=== PATIENT | male | born 1990 | race Two or more races ===

== ENCOUNTER 2021-09-05 03:35 | Emergency (ER) | payer BC ==
[~2021-09-05] VITALS: Ht 172.7 cm; Wt 76.4 kg
[2021-09-05 03:45] VITALS: BP 162/88
[2021-09-05] MEDS ORDERED: EYE-STREAM OPHTH SOLUTION 120 ML BOTTLE. OU ONE (03:45)
[2021-09-05] MEDS ORDERED: TETRACAINE 0.5% OPHTH SOLUTION 4ML BOTTLE. OU ONE (03:45)
[2021-09-05] MEDS ORDERED: ERYT1OIN6 OP (04:13)
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
[2021-09-05] MEDS ORDERED: ERYTHROMYCIN 0.5% OPHTH OINTMENT 1GM TUBE. OU ONE (04:15)
== END 2021-09-05 04:30 | disposition home or self-care (01) ==
LOC: ER 03:35
DX: H10.213 Acute toxic conjunctivitis, bilateral (principal)
CPT/HCPCS: 99283